=== PATIENT | male | born 1940 | race Two or more races ===

== ENCOUNTER 2018-05-14 09:36 | Emergency (ER) | payer OTHER ==
[~2018-05-14] VITALS: Ht 185.4 cm; Wt 108.9 kg
[2018-05-14 10:32] LABS: Basophils # (auto) 0.1 uL; Eosinophils # (auto) 0.1 uL; Eosinophils % (auto) 2.2 % (0.0-7.0); Hematocrit 46.9 % (41.0-53.0); Hemoglobin 15.7 g/dL (13.5-17.5); Lymphocytes % (auto) 15.2 % (10.0-50.0); Mean Corpuscular Hemoglobin 27.4 pg (28.0-32.0); Mean Corpuscular Hgb Conc. 33.5 g/dL (32.0-36.0); Monocytes # (auto) 0.3 uL; Monocytes % (auto) 5.2 % (0.0-12.0); Neutrophils # (auto) 5.1 uL; Neutrophils % (auto) 76.4 % (37.0-80.0); Nucleated Red Blood Cells % 0.4 %; Platelet Count (auto) 138 10^3/uL (140-450); Red Blood Cells 5.73 10^6/uL (4.5-5.90); Red Cell Distribution Width 13.7 % (11.8-14.3); White Blood Cell 6.6 10^3/uL (4.4-10.8)
[2018-05-14] MEDS ORDERED: SIMV-13 PO (10:42)
[2018-05-14] MEDS ORDERED: ALFU10TA12 PO (10:42)
[2018-05-14] MEDS ORDERED: AMLO5TAB2 PO (10:42)
[2018-05-14] MEDS ORDERED: ASPI-378 PO (10:42)
[2018-05-14] MEDS ORDERED: GLIP-116 PO (10:42)
[2018-05-14] MEDS ORDERED: CLOP75TA41 PO (10:42)
[2018-05-14] MEDS ORDERED: CHOL20007 OR (10:42)
[2018-05-14] MEDS ORDERED: PANT1INJ3 PO (10:42)
[2018-05-14] MEDS ORDERED: SERT-274 PO (10:42)
[2018-05-14] MEDS ORDERED: SODIUM CHLORIDE 0.9% 1,000 ML IV ONE (10:50)
[2018-05-14 10:53] LABS: Alanine Aminotransferase 30 U/L (16-61); Alkaline Phosphatase 53 U/L (45-117); Anion Gap 7 (5-15); Aspartate Aminotransferase 22 U/L (15-37); BUN/Creatinine Ratio 11.3; Blood Urea Nitrogen 13 mg/dL (7-18); Calcium 8.6 mg/dL (8.5-10.1); Carbon Dioxide 27 mmol/L (21-32); Chloride 104 mmol/L (98-107); GFR African American 80 mL/min; GFR Non-African American 66 mL/min; Glucose 214 mg/dL (74-106); Magnesium 2.3 mg/dL (1.6-2.6); Potassium 3.7 mmol/L (3.5-5.1); Sodium 138 mmol/L (136-145); Total Protein 7.6 g/dL (6.4-8.2)
[2018-05-14] MEDS ORDERED: MECLIZINE HCL 25 MG TAB PO ONE (11:00)
[2018-05-14] MEDS ORDERED: FUROSEMIDE 20 MG/2 ML VIAL IV ONE (11:00)
[2018-05-14] MEDS ORDERED: LORazepam 2MG/ML-1ML VIAL IV ONE (11:00)
[2018-05-14 11:43] LABS: Urine Bacteria NONE SEEN /hpf (None Seen); Urine Blood Negative /uL (Negative); Urine Specific Gravity 1.013 (1.001-1.035); Urine WBC <1 /hpf (0 - 3)
[2018-05-14 13:42] VITALS: BP 111/75
== END 2018-05-14 13:53 | disposition home or self-care (01) ==
LOC: ER 09:36
DX: R42 Dizziness and giddiness (principal); E11.65 Type 2 diabetes mellitus with hyperglycemia; E03.9 Hypothyroidism, unspecified; I10 Essential (primary) hypertension; K21.9 Gastro-esophageal reflux disease without esophagitis; E78.5 Hyperlipidemia, unspecified
CPT/HCPCS: 36415; 70450; 71046; 80053; 81001; 83735; 84443; 84484; 85025; 93005; 94761; 96361; 96374; 96375; 99285; J1940; J2060; J7030; J8597

== ENCOUNTER 2020-09-30 14:22 | Inpatient (IN) | payer OTHER ==
[2020-09-30] VITALS (24 sets, daily range): BP systolic 42–136; BP diastolic 22–81
[~2020-09-30] VITALS: Ht 182.9 cm; Wt 83.5 kg
[~2020-09-30 14:22] MED LIST: ALFU10TA33 PO; AMLO5TAB15 PO; ASPI-378 PO; CHOL20007 OR; CLOP75TA41 PO; GLIP10TA9 PO; PANT1INJ3 PO; SERT-274 PO; SIMV-13 PO
[2020-09-30] MEDS ORDERED: SODIUM CHLORIDE 0.9% 1,000 ML IV ONE (14:30)
[2020-09-30] MEDS ORDERED: ACETAMINOPHEN 650 MG RECT SUPP PR ONE (14:45)
[2020-09-30] MEDS ORDERED: cefTRIAXone 1GM/50ML D5W 50 ML IV ONE (14:45)
[2020-09-30] MEDS ORDERED: metroNIDAZOLE 500MG/100ML 100 ML IV ONE (14:45)
[2020-09-30 15:09] LABS: Basophils # (auto) 0.1 10 ^3/uL (0-0.2); Basophils % (auto) 0.4 % (0.0-2.0); Eosinophils # (auto) 0.1 10 ^3/uL (0-0.8); Eosinophils % (auto) 0.4 % (0.0-7.0); Lymphocytes # (auto) 0.7 10 ^3/uL (0.4-5.4); Monocytes # (auto) 1.2 10 ^3/uL (0-1.3); Neutrophils # (auto) 15.4 10 ^3/uL (1.6-8.6); Platelet Count (auto) 172 10^3/uL (140-450); Red Cell Distribution Width 16.7 % (11.8-14.3); White Blood Cell 17.4 10^3/uL (4.4-10.8)
[2020-09-30 15:10] LABS: Hemoglobin 13.5 g/dL (13.5-17.5); Lymphocytes % (auto) 3.9 % (10.0-50.0); Mean Corpuscular Hemoglobin 26.6 pg (28.0-32.0); Mean Corpuscular Volume 83.1 fL (80.0-100.0); Neutrophils % (auto) 88.3 % (37.0-80.0); Red Blood Cells 5.05 10^6/uL (4.5-5.90)
[2020-09-30] MEDS ORDERED: NOREPINEPHRINE 8 MG/250ML KIT 250 ML IV ONE (15:14)
[2020-09-30 15:23] LABS: INR 1.62 (0.9-1.15); Partial Thromboplastin Time 28.2 sec (23.0-31.2)
[2020-09-30 15:25] LABS: Calcium 9.2 mg/dL (8.5-10.1); Potassium 4.3 mmol/L (3.5-5.1)
[2020-09-30] MEDS: NOREPINEPHRINE 8 MG/250ML KIT 250 ML IV SCH ×2 (15:28→22:05)
[2020-09-30] MEDS ORDERED: SODIUM CHLORIDE 0.9% 3,000 ML IV ONE (15:30)
[2020-09-30 15:34] LABS: BUN/Creatinine Ratio 22.5; Bilirubin, Total 0.8 mg/dL (0.2-1.0); Total Protein 5.5 g/dL (6.4-8.2)
[2020-09-30] MEDS ORDERED: NITROGLYCERIN 0.4 MG SL TAB SL PRN ×2 (16:00→23:15)
[2020-09-30] MEDS ORDERED: MORPHINE SULF INJ 2 MG/ML SYRINGE 1ML IV PRN ×3 (16:00→23:15)
--- NOTE | 2020-09-30 18:05 | NUR ---
IN-HOUSE COVID SWAB TAKEN TO LAB TO BE PROCESSED. PER PROTOCOL.
--- NOTE | 2020-09-30 19:00 | NUR ---
Report received from JARETT Zambrano. Patient on simple mask at 10 L/M. Patient on Levophed drip at 21.96 mcg/min. Will continue with POC; and, will continue to monitor VS, focus on BP, and clinical status.
--- NOTE | 2020-09-30 20:00 | NUR ---
Hospitalist Dr. Johnson paged regarding FFP Transfusion order clarification: H&H 13.5&42; PLT 172; PT/INR 16.7/1.62. MD return call immediately. Patch Worker clarify FFP order. MD states give one FFP.
--- NOTE | 2020-09-30 20:15 | NUR ---
Lbd Teacher attempted to call patient family () at [phone] regarding Blood Consent (telephonic consent). Voicemail message left to call film writer at [phone] ICU and ask for film writer.
[2020-09-30] MEDS: PANTOPRAZOLE 40 MG/10 ML VIAL INJ IV SCH (22:00)
--- NOTE | 2020-09-30 22:00 | NUR ---
Rtn scheduled medication given. See e-MAR.
--- NOTE | 2020-09-30 22:05 | NUR ---
Levophed drip bag changed to new bag and resumed at 22 mcg/min.
[2020-09-30] MEDS ORDERED: VANCOMYCIN PER PHARMACY 0 MG IV SCH (23:15)
[2020-09-30] MEDS ORDERED: DEXTROSE (50%) 50ML SYRG IV PRN (23:15)
[2020-09-30] MEDS ORDERED: LACTATED RINGER'S 1,000 ML IV ONE (23:15)
[2020-09-30] MEDS ORDERED: ACETAMINOPHEN 325 MG TAB PO PRN (23:15)
[2020-09-30] MEDS ORDERED: PIPERACILLIN-TAZOB 3.375GM 100 ML IV ONE (23:15)
[2020-09-30] MEDS ORDERED: DOCUSATE SOD 100 MG CAP PO PRN (23:15)
[2020-09-30] MEDS ORDERED: LORazepam 0.5 MG TAB PO PRN (23:15)
[2020-09-30] MEDS ORDERED: ONDANSETRON HCL 4 MG/2 ML VIAL IV PRN (23:15)
[2020-09-30] MEDS ORDERED: HYDROcodone-ACET 5/325MG TAB PO PRN (23:15)
[2020-09-30] MEDS ORDERED: ALUM & MAG HYDROX-SIMETH LIQ(MAALOX) 30 ML PO PRN (23:15)
[2020-09-30] MEDS: SODIUM CHLORIDE 0.9% 1,000 ML IV SCH (23:30)
[2020-09-30] MEDS ORDERED: VANCOMYCIN 1GM/250ML 250 ML IV ONE (23:30)
--- NOTE | 2020-09-30 23:30 | NUR ---
IVF LR 1000 bolus infusion started; IVF NS 1000 infusion started TRA 60 ml/hr; Zosyn 3.375 Gm IV infusion started TRA 33.333 ml/hr; Vancomycin 1 Gm IV infusion started TRA 250 ml/hr.
--- NOTE | 2020-09-30 23:40 | NUR ---
Bed bath and linen change given.
[2020-10-01] VITALS (94 sets, daily range): BP systolic 81–134; BP diastolic 37–79
--- NOTE | 2020-10-01 02:38 | NUR ---
Fio2 decrease to 4 L/M NC by RT.
--- NOTE | 2020-10-01 02:40 | NUR ---
PT NOTED TO NOT TO BE IN SOLATION PRECAUTIONS. ASSESSED PT 100% POX ON 8LPM SIMPLE MASK. TITRATED TO 4LPM NC PT TOLERATING CHANGE WELL. POX 97-99% ON NASAL CANNULA. RN DANK COMMUNICATED ON O2 CHANGE.
--- NOTE | 2020-10-01 03:51 | NUR ---
Photo Optics Technician on unit. Reference Librarian collected am labs from [facility]. Specimens given to Photo Optics Technician then sent to lab.
--- NOTE | 2020-10-01 03:52 | NUR ---
Project Management Engineer on unit. Mineral Engineer collected am labs from [facility]. Specimens given to Project Management Engineer then sent to lab.
--- NOTE | 2020-10-01 05:28 | NUR ---
Levophed drip bag changed to new bag and resumed infusion at 22 mcg/min. Addendum: 10/01/20 at 0531 by Darrian Jeffries RN RN Medication will not scan.
[2020-10-01] MEDS: PIPERACILLIN-TAZOB 2.25GM 50 ML IV SCH ×5 (05:39→23:39)
--- NOTE | 2020-10-01 05:39 | NUR ---
Zosyn 2.25 Gm IV infusion started.
[2020-10-01] MEDS: InsuLIN REG 1unit/0.01ml Soln (100units/ml) SC SCH ×4 (06:49→22:23)
--- NOTE | 2020-10-01 06:50 | NUR ---
Accucheck 189 mg/dl. Patient covered with Regular Insulin 3 units SQ.
[2020-10-01] MEDS: ACCU-CHEK COMFORT CURVE STRIP VI SCH ×4 (07:00→22:23)
--- NOTE | 2020-10-01 08:00 | NUR ---
ELIMINATION Patient had a large loose watery stool, pericare provided and complete linen change done with the assistance of Veronique DENSON. Will continue to monitor patient closely.
--- NOTE | 2020-10-01 08:50 | NUR ---
FAMILY Received phone call from patients Caryn Altamirano and was able to set up a password for future use via telephone. Updated of patient condition and was able to obtain consent for blood with the witness of Adrian Nguyen RN via telephone. Questions answered.
--- NOTE | 2020-10-01 09:00 | NUR ---
CT SCAN Kimmie RN, radiology nurse, at bedside to transport patient to CT scan to obtain study of abd/pelvic and head. media monitor and portable oxygen provided for patient. Awaiting for patients arrive back into room 103.
--- NOTE | 2020-10-01 09:20 | NUR ---
ARRIVAL Patient returned from CT scan and connected back to bedside monitor. Per Kimmie DENSNO the patient tolerated well. Will continue to monitor patient closely.
[2020-10-01] MEDS: PANTOPRAZOLE 40 MG/10 ML VIAL INJ IV SCH ×2 (09:48→21:47)
[2020-10-01] MEDS ORDERED: VANCOMYCIN 500 MG in D5W 5% 100 ML IV ONE (10:00)
[2020-10-01] MEDS: NOREPINEPHRINE 8 MG/250ML KIT 250 ML IV SCH (11:46)
--- NOTE | 2020-10-01 11:50 | NUR ---
FAMILY Received phone call from patients Caryn, password was provided and update given.
--- NOTE | 2020-10-01 13:15 | NUR ---
MD Dr. Matamoros at bedside updated on patient condition with new orders this RN to input into system. MD called and was able to speak to her regarding plan of care and discharging patient on Hospice. Patient does not want patient to go home on Hospice secondary to did not enjoy hospice company that her was in the last time. plier worker consulted to convince patient of hospice.
[2020-10-01 15:20] LABS: Basophils # (auto) 0.1 10 ^3/uL (0-0.2); Basophils % (auto) 0.4 % (0.0-2.0); Eosinophils # (auto) 0.2 10 ^3/uL (0-0.8); Hematocrit 42.1 % (41.0-53.0); Hemoglobin 13.4 g/dL (13.5-17.5); Lymphocytes # (auto) 0.8 10 ^3/uL (0.4-5.4); Lymphocytes % (auto) 3.1 % (10.0-50.0); Mean Corpuscular Hemoglobin 26.5 pg (28.0-32.0); Mean Corpuscular Hgb Conc. 31.7 g/dL (32.0-36.0); Mean Corpuscular Volume 83.5 fL (80.0-100.0); Monocytes # (auto) 1.5 10 ^3/uL (0-1.3); Monocytes % (auto) 5.8 % (0.0-12.0); Neutrophils # (auto) 22.5 10 ^3/uL (1.6-8.6); Neutrophils % (auto) 89.7 % (37.0-80.0); Platelet Count (auto) 138 10^3/uL (140-450); Red Blood Cells 5.05 10^6/uL (4.5-5.90); White Blood Cell 25.1 10^3/uL (4.4-10.8)
[2020-10-01 15:34] LABS: INR 1.5 (0.9-1.15); Partial Thromboplastin Time 31.4 sec (23.0-31.2)
--- NOTE | 2020-10-01 15:35 | NUR ---
ELIMINATION Patient had a moderate mucous bowel movement, obtained occult stool and sent to laboratory and alise-care provided and complete linen change done with the assistance of Cedric DENSON. Patient tolerated well. Will continue to monitor patient closely.
[2020-10-01 15:42] LABS: Albumin 1.8 g/dL (3.4-5.0); Potassium 3.8 mmol/L (3.5-5.1)
[2020-10-01 15:46] LABS: BUN/Creatinine Ratio 30.1; Bilirubin, Total 0.6 mg/dL (0.2-1.0); Total Protein 5.4 g/dL (6.4-8.2)
[2020-10-01] MEDS: SODIUM CHLORIDE 0.9% 1,000 ML IV SCH (15:55)
--- NOTE | 2020-10-01 16:01 | NUR ---
SS consult for hospice. Discussed provider orders with spouse, Vivien, and her decline for hospice. Spouse states she had hospice for pt before and they did nothing, pt just stayed in the bed. Explained to spouse that the hospice program is palliative and does no invasive interactions. Spouse then stated she is recovering from a fractured hip and is just beginning to ambulate. She states she is unable to care for him and wants him to stay in the hospital. Explained to spouse placement options i.e. board and care but she states she cannot afford that. Pt is a wartime and can qualify possibly for the [place] aid and attendance program that can assist with paying for caregivers. Spouse states a Mr. Bhagat ) from the [place] has been helping her and she has a caregiver with [facility] caregiver agency. Explained to spouse that once pt is medically stable he would not be authorized for continued hospitalization and she will need to make a decision. Called Mr. Bhagat to discuss [facility] A[facility] program but not available, left . Addendum: 10/01/20 at 1611 by MAYUR GIBSON Amended: Links added.
--- NOTE | 2020-10-01 16:30 | NUR ---
MD Dr. Parson at bedside updated on patient condition with no new orders, will continue to monitor patient closely.
--- NOTE | 2020-10-01 16:45 | NUR ---
Called Dr. Matamoros's exchange to notify him of labs that were order per his request and to determine if patient needed FFP transfusion. Awaiting for MD to call back.
--- NOTE | 2020-10-01 17:25 | NUR ---
MD Dr. Matamoros called and aware of labs with no new orders and states " to hold FFP for now."
--- NOTE | 2020-10-01 17:45 | NUR ---
MD Dr. Licea at bedside updated on patient condition with no new orders, will continue to monitor patient closely.
[2020-10-01] MEDS: TAMSULOSIN HYDROCHLORIDE 0.4 MG CAP PO SCH (18:00)
--- NOTE | 2020-10-01 19:26 | NUR ---
Report received from JARETT Hensley. Patient on oxygen 2 L/M NC. IVF: Levophed drip a mcg/min; NS at 60 ml/hr. Will continue with POC; and, will continue to monitor VS, focus on BP, and clinical status.
--- NOTE | 2020-10-01 21:48 | NUR ---
Rtn scheduled medication given. See e-MAR.
--- NOTE | 2020-10-01 22:18 | NUR ---
Accucheck 179 mg/dl. Patient covered with Regular Insulin 3 units SQ.
--- NOTE | 2020-10-01 23:40 | NUR ---
Zosyn 2.25 Gm IV infusion started.
[2020-10-02] VITALS (92 sets, daily range): BP systolic 70–126; BP diastolic 46–95
[2020-10-02] MEDS: NOREPINEPHRINE 8 MG/250ML KIT 250 ML IV SCH ×4 (01:41→22:39)
--- NOTE | 2020-10-02 01:41 | NUR ---
Levophed drip changed to new bag and resumed at 24 mcg/min.
--- NOTE | 2020-10-02 03:24 | NUR ---
Home Mortgage Disclosure Act Specialist on unit. Lab Director collected am labs from [facility]. Specimens given to Home Mortgage Disclosure Act Specialist and specimens sent to lab.
[2020-10-02 04:03] LABS: Red Cell Distribution Width 16.8 % (11.8-14.3)
[2020-10-02 04:07] LABS: Hematocrit 40.4 % (41.0-53.0); Hemoglobin 13.2 g/dL (13.5-17.5); Mean Corpuscular Hemoglobin 27.1 pg (28.0-32.0); Mean Corpuscular Hgb Conc. 32.6 g/dL (32.0-36.0); Mean Corpuscular Volume 83.2 fL (80.0-100.0); Platelet Count (auto) 110 10^3/uL (140-450); Red Blood Cells 4.86 10^6/uL (4.5-5.90); White Blood Cell 25.6 10^3/uL (4.4-10.8)
[2020-10-02 04:16] LABS: Basophils % (manual) 0 (0.0-2.0); Blast Cells 0; Metamyelocytes % 0; Myelocytes % 0; Promyelocytes % 0; Reactive Lymphocytes 0
[2020-10-02 04:24] LABS: Albumin 1.8 g/dL (3.4-5.0); Calcium 8.9 mg/dL (8.5-10.1); Magnesium 2.1 mg/dL (1.6-2.6); Potassium 3.5 mmol/L (3.5-5.1)
[2020-10-02 04:27] LABS: BUN/Creatinine Ratio 31.2; Bilirubin, Total 0.6 mg/dL (0.2-1.0); Total Protein 5.2 g/dL (6.4-8.2)
[2020-10-02 04:56] LABS: Band Neutrophils % (manual) 7; Eosinophils % (manual) 2 (0-7); Lymphocytes % (manual) 4 (10.0-50.0); Monocytes % (manual) 3 (0-12)
[2020-10-02 05:07] LABS: INR 1.46 (0.9-1.15); Partial Thromboplastin Time 30.9 sec (23.0-31.2)
[2020-10-02] MEDS: PIPERACILLIN-TAZOB 2.25GM 50 ML IV SCH ×4 (05:46→23:43)
--- NOTE | 2020-10-02 05:46 | NUR ---
Zosyn 2.254 Gm IV started.
--- NOTE | 2020-10-02 06:00 | NUR ---
Moderate black tarry diarrhea stool. Patient bathed with partial linen change.
--- NOTE | 2020-10-02 06:45 | NUR ---
Accucheck 165 mg/dl. Patient covered with Regular Insulin 3 units SQ.
[2020-10-02] MEDS: ACCU-CHEK COMFORT CURVE STRIP VI SCH ×4 (06:47→22:00)
[2020-10-02] MEDS: InsuLIN REG 1unit/0.01ml Soln (100units/ml) SC SCH ×4 (06:49→22:00)
--- NOTE | 2020-10-02 06:56 | NUR ---
Levophed drip changed to new bag and resumed infusion a t24 mcg/min.
--- NOTE | 2020-10-02 09:16 | NUR ---
Patient's called and was updated appropriately by the RN. All questions and concerns addressed.
[2020-10-02] MEDS: SODIUM CHLORIDE 0.9% 1,000 ML IV SCH (09:51)
[2020-10-02] MEDS: PANTOPRAZOLE 40 MG/10 ML VIAL INJ IV SCH ×2 (09:51→22:08)
--- NOTE | 2020-10-02 12:10 | NUR ---
Received a call from Hector at [facility] asking if we could fax clinicals , express to him that I had authorization from [facility] for the patient's stay, ask if he was using his VA, stated no, that on his admission sheet it has [facility] and they have gave auth for the stay, also told him that he has a order to go home on Hospice. Stated if we need anything to let him know.
--- NOTE | 2020-10-02 13:34 | NUR ---
Dr. Licea at bedside.
[2020-10-02] MEDS ORDERED: VANCOMYCIN 750mg/250ml 250 ML IV ONE (14:00)
--- NOTE | 2020-10-02 14:30 | NUR ---
Patient's called and was updated appropriately by the RN. All questions and concerns addressed.
--- NOTE | 2020-10-02 14:50 | NUR ---
Dr. Matamoros at bedside.
--- NOTE | 2020-10-02 15:20 | NUR ---
Assessment Patient is a 80 year old male, patient is unable to participate with DOMINIK Espinoza, DOMINIK called to conduct initial assessment. Per patient Vivien ([phone]), patient was alert and oriented prior to admission to [facility]. Per , patient is receiving pension benefits from [place]. Per , patient needed assistance with ambulation and ADL's. Per , patient was receiving home health service provided by [facility] benefits. Per , patient has been unstable on his feet and was using a wheelchair, patient is requesting a walker. Per , patient to be transfer to [facility] post discharge. Discharge planning: Patient will benefit from home health physical therapy. Patient will resume home health service provided by [place] post discharge. Patient will benefit from walker for home use post discharge. Patient has no other post discharge needs to identify at the moment. Addendum: 10/02/20 at 1541 by WYATT GIBSON Amended: Links added.
[2020-10-02] MEDS: TAMSULOSIN HYDROCHLORIDE 0.4 MG CAP PO SCH (17:56)
[2020-10-02 18:00] LABS: Lactic Acid w/Reflex 2.7 mmol/L (0.4-2.0)
--- NOTE | 2020-10-02 19:08 | NUR ---
Report received from JARETT Garcia. Patient on oxygen 2 L/M NC. IVF: Levophed drip infusion at 16 mcg/min; NS at 60 ml/hr. Will continue with POC; and, will continue to monitor VS, focus on BP, and clinical status.
--- NOTE | 2020-10-02 22:00 | NUR ---
Accucheck 12 mg/dl. No coverage required.
--- NOTE | 2020-10-02 22:09 | NUR ---
Rtn scheduled medication given. See e-MAR.
--- NOTE | 2020-10-02 22:39 | NUR ---
Levophed drip changed to new bag and resumed at 16 mcg/min. Medication will not scan.
--- NOTE | 2020-10-02 23:43 | NUR ---
Zosyn 2.25 Gm iv started.
[2020-10-03] VITALS (90 sets, daily range): BP systolic 74–120; BP diastolic 38–98
[2020-10-03] MEDS: SODIUM CHLORIDE 0.9% 1,000 ML IV SCH ×2 (01:18→16:37)
--- NOTE | 2020-10-03 01:18 | NUR ---
IVF NS changed to new bag and resumed at 60 ml/hr.
--- NOTE | 2020-10-03 04:00 | NUR ---
Auto Hiker on unit. Commercial Sales Specialist collected am labs from [facility]. Specimens given to Auto Hiker and then specimens sent to lab.
[2020-10-03] MEDS: PIPERACILLIN-TAZOB 2.25GM 50 ML IV SCH ×4 (05:30→22:53)
--- NOTE | 2020-10-03 05:30 | NUR ---
Zosyn 2.25 Gm IV started.
--- NOTE | 2020-10-03 06:41 | NUR ---
Moderate black tarry diarrhea stool. Patient given partial bath and with partial bed linen change.
[2020-10-03] MEDS: ACCU-CHEK COMFORT CURVE STRIP VI SCH ×4 (07:01→22:25)
[2020-10-03] MEDS: InsuLIN REG 1unit/0.01ml Soln (100units/ml) SC SCH ×4 (07:04→22:00)
--- NOTE | 2020-10-03 07:05 | NUR ---
Accucheck 179 mg/dl. Patient covered with Regular Insulin 3 units SQ.
[2020-10-03] MEDS: NOREPINEPHRINE 8 MG/250ML KIT 250 ML IV SCH ×2 (08:24→16:37)
[2020-10-03] MEDS: PANTOPRAZOLE 40 MG/10 ML VIAL INJ IV SCH ×2 (09:22→20:59)
[2020-10-03 10:15] LABS: Monocytes # (auto) 0.9 10 ^3/uL (0-1.3); Nucleated Red Blood Cells % 0.1 %
[2020-10-03 10:16] LABS: Basophils # (auto) 0.1 10 ^3/uL (0-0.2); Basophils % (auto) 0.3 % (0.0-2.0); Eosinophils # (auto) 0.5 10 ^3/uL (0-0.8); Eosinophils % (auto) 2.4 % (0.0-7.0); Hematocrit 39.1 % (41.0-53.0); Hemoglobin 12.4 g/dL (13.5-17.5); Lymphocytes # (auto) 0.6 10 ^3/uL (0.4-5.4); Mean Corpuscular Hemoglobin 26.6 pg (28.0-32.0); Mean Corpuscular Hgb Conc. 31.7 g/dL (32.0-36.0); Mean Corpuscular Volume 83.9 fL (80.0-100.0); Monocytes % (auto) 4.3 % (0.0-12.0); Neutrophils # (auto) 19.2 10 ^3/uL (1.6-8.6); Red Blood Cells 4.66 10^6/uL (4.5-5.90); Red Cell Distribution Width 17.1 % (11.8-14.3); White Blood Cell 21.3 10^3/uL (4.4-10.8)
[2020-10-03 10:18] LABS: BUN/Creatinine Ratio 31.4; Calcium 9.1 mg/dL (8.5-10.1); Potassium 3.4 mmol/L (3.5-5.1)
--- NOTE | 2020-10-03 10:37 | NUR ---
Dr. Matamoros at bedside.
--- NOTE | 2020-10-03 10:57 | NUR ---
Nutrition Assessment Notes Refer to link for further details. Est energy needs: 8261-3757 kcals (30-33 kcals/kgBW) d/t pt with elev RFTs, low GFR Est protein needs: 61-68 gms/day (0.8-0.9gm/kgBW) d/t pt with elev RFTs, low GFR Will reassess prn Addendum: 10/03/20 at [address] Amended: Links added.
[2020-10-03 12:03] LABS: Platelet Count (auto) 76 10^3/uL (140-450)
[2020-10-03] MEDS ORDERED: VANCOMYCIN 750mg/250ml 250 ML IV ONE (15:00)
[2020-10-03] MEDS: TAMSULOSIN HYDROCHLORIDE 0.4 MG CAP PO SCH (19:03)
[2020-10-04] VITALS (87 sets, daily range): BP systolic 79–115; BP diastolic 36–70
[2020-10-04 05:06] LABS: Lactic Acid w/Reflex 2.8 mmol/L (0.4-2.0)
[2020-10-04] MEDS: ACCU-CHEK COMFORT CURVE STRIP VI SCH ×4 (05:49→22:00)
[2020-10-04] MEDS: InsuLIN REG 1unit/0.01ml Soln (100units/ml) SC SCH ×4 (05:49→22:33)
[2020-10-04] MEDS: PIPERACILLIN-TAZOB 2.25GM 50 ML IV SCH ×3 (05:50→17:16)
[2020-10-04] MEDS: NOREPINEPHRINE 8 MG/250ML KIT 250 ML IV SCH ×2 (06:25→13:09)
--- NOTE | 2020-10-04 07:30 | NUR ---
Opening Shift Note Assumed care of patient, laying in bed, arousable to voice, oriented to self, follows simple commands, re-orientation done. No S/S of distress/SOB or pain. See interventions for complete assessment. Bed locked on low position, side rails up x2, bed alarms on at all times, call ojeda within reach, instructed on POC and to call for assist PRN, will continue to monitor for changes Q1hr and PRN.
--- NOTE | 2020-10-04 07:50 | NUR ---
Dr Licea at bedside, updated on patient's status. Patient seen and examined. Patient switched from 8 LPM oxygen via nasal cannula to 8 LPM via simple mask, saturation 90%. Will continue to monitor.
[2020-10-04] MEDS: PANTOPRAZOLE 40 MG/10 ML VIAL INJ IV SCH ×2 (10:02→22:21)
--- NOTE | 2020-10-04 10:29 | NUR ---
Dr Matamoros at bedside, updated on patient's status. Patient seen and examined. Will carry out new orders.
[2020-10-04] MEDS: SODIUM CHLORIDE 0.9% 1,000 ML IV SCH (11:26)
--- NOTE | 2020-10-04 11:27 | NUR ---
Blood sugar 152 mg/dL insulin held because pt is NPO.
--- NOTE | 2020-10-04 13:06 | NUR ---
WOUND CARE NOTE: Wound care in to see patient per wound care request regarding low Jake score of 12 and sacral skin tear that are noted by bedside nurse upon skin assessment. Bedside nurse took photograph of patient's wounds for reference. Patient is 80 years old male with admitting diagnosis of Hypovolemic Shock secondary to GI Bleed, Septic Shock. Patient is resting in ICU low air loss bed in Rm. 103. Patient is awake but not oriented. Patient appears to be in no pain using Jimenez Pratt Faces Pain Scale. He needs assistance in turning and repositioning. Skin/wound assessment done with the assistance of another nurse, JARETT Minaya. Patient's distal Rt lateral forearm noted with 1.2x0.5cm open partial thickness skin tear. Wound is red with black scabs at edges, pink alise wound,no drainage/odor noted. Bedside nurse cleansed patient's Rt forearm skin tear with NS, applied Thera honey gel and covered with Band aid per MD order. Patient's L buttock also noted with 3x1cm open partial thickness skin tear. Wound is red with bright and dark red blanchable surrounding skin, no drainage/odor noted. Patient is receiving BID/PRN cleaning and application of Z Guard cream to sacral, buttocks. Patient's RLE noted with edema and erythema. Dry peeling skin noted to patient's BLE with dry scars and scabs. Patient's Bilateral foot, toe nails are long, hard, thick and yellow, no drainage/odor noted, left open to air. Repositioned patient for comfort facing his Lt side, redistributed pressure points with pillows. Patient tolerated well. RECOMMENDATION: Nursing to continue with BID/PRN cleaning and application of Z Guard cream to sacral buttocks ,Q3Days/PRN dressing change to Rt forearm skin tear per MD order, Dietary consult, frequent turning and repositioning schedule as condition permits, redistribute pressure points with pillows, elevate heels on pillows, frequent alise care/check, keep clean and dry, continue monitoring by wound care while patient is hospitalized. Addendum: 10/04/20 at 1556 by Darline Torres RN Amended: Links added.
--- NOTE | 2020-10-04 16:07 | NUR ---
SWALLOW EVALUATED. PATIENT HAS SOME TEETH. PATIENT VERY WEAK BUT ABLE TO FOLLOW ONE STEP COMMANDS. PATIENT ABLE TO TOLERATE PUREE DIET TEXTURE WITH THIN LIQUIDS WITH NO OVERT SIGNS OR SYMPTOMS OF ASPIRATION. NURSING NOTIFIED.
[2020-10-04] MEDS: TAMSULOSIN HYDROCHLORIDE 0.4 MG CAP PO SCH (17:16)
--- NOTE | 2020-10-04 18:30 | NUR ---
Patient switch from 10 LPM mask to 10 LPM non-rebreather, saturation 87%, will continue to monitor.
--- NOTE | 2020-10-04 20:00 | NUR ---
ASSUMED CARE OF 80 YR OLD MALE, DNR STATUS, ON 100% NRB MASK, SA02 88-91%, PT OPENS EYES SLIGHTLY TO VERBAL BUT DOES NOT FOLLOW COMMANDS, MOVING UPPER EXTREMITIES, NO MOVEMENT NOTED ON LOWER EXT, RIGHT JUGULAR TLC INFUSING LEVOPHED GTT AT 10 MCG/MIN, SBP 80'S , PT REPOSITIONED AND CLEANSED OF SMALL TARRY STOOL
[2020-10-05] VITALS (45 sets, daily range): BP systolic 60–93; BP diastolic 32–69
--- NOTE | 2020-10-05 | NUR ---
Report received on patient. Care endorsed from Charge, RN to this creative writer. RN will continue to monitor and assess patient.
[2020-10-05] MEDS: PIPERACILLIN-TAZOB 2.25GM 50 ML IV SCH ×3 (00:01→11:29)
--- NOTE | 2020-10-05 00:30 | NUR ---
REPORT GIVEN TO RYLEY DENSON WHO WILL ASSUME CARE
--- NOTE | 2020-10-05 00:45 | NUR ---
BM: Patient was noted to have a BM. RN provided alise care and linen change was also provided. Patient repositioned for comfort. Patient tolerated intervention well with no s/s of discomfort or distress.
[2020-10-05] MEDS: SODIUM CHLORIDE 0.9% 1,000 ML IV SCH (03:15)
[2020-10-05 04:23] LABS: Hemoglobin 12.6 g/dL (13.5-17.5)
[2020-10-05 04:26] LABS: Hematocrit 40.3 % (41.0-53.0); Mean Corpuscular Hemoglobin 26.9 pg (28.0-32.0); Mean Corpuscular Hgb Conc. 31.2 g/dL (32.0-36.0); Mean Corpuscular Volume 86.2 fL (80.0-100.0); Platelet Count (auto) 113 10^3/uL (140-450); Red Blood Cells 4.67 10^6/uL (4.5-5.90); Red Cell Distribution Width 17.5 % (11.8-14.3); White Blood Cell 29.4 10^3/uL (4.4-10.8)
[2020-10-05 04:32] LABS: Basophils % (manual) 0 (0.0-2.0); Blast Cells 0; Eosinophils % (manual) 0 (0-7); Promyelocytes % 0; Reactive Lymphocytes 0
[2020-10-05 04:45] LABS: BUN/Creatinine Ratio 28.6; Calcium 9.2 mg/dL (8.5-10.1); Magnesium 2.2 mg/dL (1.6-2.6); Potassium 4.4 mmol/L (3.5-5.1)
[2020-10-05] MEDS: InsuLIN REG 1unit/0.01ml Soln (100units/ml) SC SCH ×2 (06:21→11:30)
[2020-10-05] MEDS: ACCU-CHEK COMFORT CURVE STRIP VI SCH ×2 (06:22→11:29)
--- NOTE | 2020-10-05 06:22 | NUR ---
Insulin: AM insulin held d/t patient NPO and unable to swallow at this time.
--- NOTE | 2020-10-05 07:30 | NUR ---
Opening Shift Note Assumed care of patient. See interventions for complete assessment. Bed locked on low position, side rails up x2, bed alarms on at all times, will continue to monitor for changes Q1hr and PRN.
[2020-10-05] MEDS: NOREPINEPHRINE 8 MG/250ML KIT 250 ML IV SCH (07:33)
--- NOTE | 2020-10-05 07:50 | NUR ---
Spoke to patient's Vivien over the phone, updated on patient's status, verbalized understanding. Will come to see patient.
--- NOTE | 2020-10-05 08:10 | NUR ---
Paged Dr Matamoros and called back, updated on patient's status, verbalized understanding. Receive telephone orders for comfort measures and Morphine PRN, verified with shuttle preparation supervisor Robin. Will carry out.
[2020-10-05] MEDS ORDERED: MORPHINE SULF INJ 2 MG/ML SYRINGE 1ML IV PRN (08:30)
--- NOTE | 2020-10-05 09:00 | NUR ---
Patient's Vivien at bedside. Pastoral care provided. Onion Topper on the phone with patient's .
[2020-10-05] MEDS: PANTOPRAZOLE 40 MG/10 ML VIAL INJ IV SCH (09:40)
--- NOTE | 2020-10-05 11:22 | NUR ---
Dr Matamoros at bedside, updated on patient's status. Patient seen and examined. Spoke to patient's at bedside. Received order to discontinue Levophed drip. Read back and verified. Will carry out.
--- NOTE | 2020-10-05 11:58 | NUR ---
Patient no pulse, no breathing, asystole on the monitor. Paged Dr Matamoros, awaiting call back. at bedside.
--- NOTE | 2020-10-05 12:24 | NUR ---
Received call from Dr Matamoros, updated on patient's status. Unable to pronounce patient's , already out of the hospital. Chief Design Engineer Lesli DENSON informed.
[2020-10-05 12:29] LABS: Lymphocytes % (manual) 4 (10.0-50.0); Metamyelocytes % 1; Myelocytes % 1
[2020-10-05 12:30] LABS: Band Neutrophils % (manual) 7; Monocytes % (manual) 5 (0-12)
--- NOTE | 2020-10-05 12:43 | NUR ---
PRONOUNCEMENT OF REQUESTED TO PRONOUNCE PT DR. FOREMAN UNAVAILABLE ADMITTED 09/30 WITH HYPOVOLEMIC SHOCK; WAS MADE DNR 10/01. HAD HX ESRD, HTN, DM FOUND PULSELESS AND APNEIC, ASYSTOLE IN 3 LEADS. ABSENCE OF HEART TONES AND RESP AFTER 1 FULL MINUTE OF AUSCULTATION. NO GAG, CORNEAL OR DTR;S. TOD 1243
--- NOTE | 2020-10-05 12:43 | NUR ---
Patient pronounce by Lesli DENSON.
--- NOTE | 2020-10-05 12:59 | NUR ---
Call placed to [facility], spoke to Zakiya. Needed information provided. Zakiya stated patient is not a candidate for organ donation and they're releasing the . Reference number [id number].
--- NOTE | 2020-10-05 13:08 | NUR ---
Call placed to Maintainer Operator, spoke to Rigoberto. Needed information provided. Awaiting call back from Maintainer Operator.
--- NOTE | 2020-10-05 13:41 | NUR ---
Second call place to Fireman Helper, spoke to Olesya. Awaiting call back.
--- NOTE | 2020-10-05 13:56 | NUR ---
GIORGI VIEIRA FROM [facility] CALLED BODY HAS BEEN RELEASED, NO NUMBER PROVIDED
[2020-10-05] MEDS ORDERED: VANCOMYCIN 750mg/250ml 250 ML IV ONE (14:00)
--- NOTE | 2020-10-05 15:00 | NUR ---
Post Mortem care done. Awaiting mortuary roller picker.
--- NOTE | 2020-10-05 15:55 | NUR ---
Patient's remains releases to [facility] including personal belongings. Vivien informed.
== END 2020-10-05 15:55 | disposition expired | DRG 871 ==
LOC: EDBD 14:22 → ER 14:22 → TELE 16:00 → ICU WEST 18:00
PROVIDERS: ADMIT Hospitalist; ATTEND Internal Medicine Geriatric Medicine
PROC: 05HY33Z Insertion of Infusion Device into Upper Vein, Percutaneous Approach (ICD-10-PCS; principal; 2020-09-30)
DX: A41.9 Sepsis, unspecified organism (principal); G93.41 Metabolic encephalopathy; J96.01 Acute respiratory failure with hypoxia; R65.21 Severe sepsis with septic shock; J18.9 Pneumonia, unspecified organism; E43 Unspecified severe protein-calorie malnutrition; K92.2 Gastrointestinal hemorrhage, unspecified; D68.4 Acquired coagulation factor deficiency; N17.9 Acute kidney failure, unspecified; C34.90 Malignant neoplasm of unspecified part of unspecified bronchus or lung; C79.31 Secondary malignant neoplasm of brain; R57.1 Hypovolemic shock; E86.0 Dehydration; F03.90 Unspecified dementia, unspecified severity, without behavioral disturbance, psychotic disturbance, mood disturbance, and anxiety; K21.9 Gastro-esophageal reflux disease without esophagitis; F32.9 Major depressive disorder, single episode, unspecified; N18.30 Chronic kidney disease, stage 3 unspecified; E11.40 Type 2 diabetes mellitus with diabetic neuropathy, unspecified; E11.21 Type 2 diabetes mellitus with diabetic nephropathy; E11.22 Type 2 diabetes mellitus with diabetic chronic kidney disease; I12.9 Hypertensive chronic kidney disease with stage 1 through stage 4 chronic kidney disease, or unspecified chronic kidney disease; J43.9 Emphysema, unspecified; N40.0 Benign prostatic hyperplasia without lower urinary tract symptoms; E78.5 Hyperlipidemia, unspecified; Z20.828 Contact with and (suspected) exposure to other viral communicable diseases; Z51.5 Encounter for palliative care; Z66 Do not resuscitate; Z79.02 Long term (current) use of antithrombotics/antiplatelets; Z79.82 Long term (current) use of aspirin; Z79.84 Long term (current) use of oral hypoglycemic drugs; Z91.81 History of falling; Z74.01 Bed confinement status; Z68.22 Body mass index [BMI] 22.0-22.9, adult
CPT/HCPCS: 36415; 36556; 36600; 51702; 70450; 71250; 74176; 80048; 80053; 80061; 80202; 82270; 82550; 82565; 82805; 82962; 83036; 83605; 83735; 83880; 84484; 85007; 85025; 85027; 85610; 85730; 86850; 86900; 86901; 87040; 87426; 92610; 93306; 96365; 97163; 99291; C9113; G0378; J0696; J1815; J2543; J3490; J7060